=== PATIENT | female | born 1995 | race Caucasian/White ===

== ENCOUNTER 2020-07-10 21:06 | Emergency (ER) | payer OTHER ==
[~2020-07-10] VITALS: Ht 170.2 cm; Wt 99.8 kg
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
--- NOTE | 2020-07-10 21:59 | NUR ---
PATIENT SIGNED WAIVER FORM. RADIOLOGY CALLED TO PROCEED WITH XRAY.
--- NOTE | 2020-07-10 22:22 | NUR ---
RETURNED FROM XRAY
[2020-07-10] MEDS ORDERED: IBUP-1955 PO (23:08)
--- NOTE | 2020-07-11 | NUR ---
DARREN HOYOS SPEAKING WITH DR. WATT
[2020-07-11 00:45] VITALS: BP 148/79
--- NOTE | 2020-07-11 00:45 | NUR ---
Patient discharged to home in stable condition. Written and verbal after care instructions given. Patient verbalizes understanding of instruction.Pt ambulatory with a steady gait
== END 2020-07-11 00:46 | disposition home or self-care (01) ==
LOC: ER 21:10
DX: M54.5 Low back pain (principal); M25.531 Pain in right wrist; M79.641 Pain in right hand; Z60.2 Problems related to living alone; V02.99XA Pedestrian with other conveyance injured in collision with two- or three-wheeled motor vehicle, unspecified whether traffic or nontraffic accident, initial encounter; Y93.89 Activity, other specified; Y92.481 Parking lot as the place of occurrence of the external cause; Y99.8 Other external cause status
CPT/HCPCS: 72110-TC; 73130-TC